=== PATIENT | female | born 1960 | race Caucasian/White ===

== ENCOUNTER → 2022-01-04 | Outpatient (CLI) | payer BC | LOC: RAD 12:31 | DX: M54.2 Cervicalgia (principal); M54.9 Dorsalgia, unspecified; M25.551 Pain in right hip; M25.552 Pain in left hip; M25.511 Pain in right shoulder; M25.512 Pain in left shoulder; M25.561 Pain in right knee; M25.562 Pain in left knee; M19.012 Primary osteoarthritis, left shoulder; M19.011 Primary osteoarthritis, right shoulder; M47.814 Spondylosis without myelopathy or radiculopathy, thoracic region; M47.812 Spondylosis without myelopathy or radiculopathy, cervical region; M47.816 Spondylosis without myelopathy or radiculopathy, lumbar region | CPT/HCPCS: 72040; 72070; 72100; 73030; 73522; 73562 ==

== ENCOUNTER → 2022-01-15 | Outpatient (CLI) | payer BC | LOC: KOH-I 01-05 10:15 | DX: R10.84 Generalized abdominal pain (principal); G89.29 Other chronic pain; R13.10 Dysphagia, unspecified; K21.9 Gastro-esophageal reflux disease without esophagitis; R11.0 Nausea | CPT/HCPCS: 76536; 76705 ==

== ENCOUNTER → 2022-02-15 | Outpatient (CLI) | payer BC | LOC: NM 08:40 | DX: R10.84 Generalized abdominal pain (principal); R13.10 Dysphagia, unspecified; K21.9 Gastro-esophageal reflux disease without esophagitis; K58.9 Irritable bowel syndrome, unspecified | CPT/HCPCS: 78227; A9537 ==